=== PATIENT | male | born 1945 | race Caucasian/White ===

== ENCOUNTER 2018-01-11 15:16 | Emergency (ER) | payer MEDICARE, OTHER ==
[~2018-01-11] VITALS: Ht 180.3 cm; Wt 75.0 kg
[~2018-01-11 15:16] MED LIST: BETA15CR15 SUBCUT; CLIN300C53 PO
[2018-01-11 15:35] VITALS: BP 120/81
[2018-01-11] MEDS ORDERED: TETanus/Pertussis (Acell)/Diphther VAC/PF (Tdap-Adult) 0.5ml syringe IM ONE (15:45)
[2018-01-11] MEDS ORDERED: mupirocin 2% ointment 22GM TP ONE (15:45)
[2018-01-11] MEDS ORDERED: cephalexin 250mg capsule PO ONE (15:50)
[2018-01-11] MEDS ORDERED: sulfamethoxazole/trimethoprim DS (800/160mg) tablet PO ONE (15:50)
[2018-01-11] MEDS ORDERED: SULF1TAB49 PO (15:54)
[2018-01-11] MEDS ORDERED: CEPH-572 PO (15:54)
== END 2018-01-11 16:23 | disposition home or self-care (01) ==
LOC: ER 15:16
DX: L03.115 Cellulitis of right lower limb (principal); Z59.0 Homelessness; Z60.2 Problems related to living alone; Z79.899 Other long term (current) drug therapy
CPT/HCPCS: 87070; 87077; 87186; 90471; 90715; 99284; A6446; A6449

== ENCOUNTER 2018-03-16 12:25 | Emergency (ER) | payer MEDICARE, OTHER ==
[~2018-03-16 12:25] MED LIST changes: -CLIN300C53 PO
[2018-03-16 12:45] VITALS: BP 129/86
[2018-03-16] MEDS ORDERED: TETanus/Pertussis (Acell)/Diphther VAC/PF (Tdap-Adult) 0.5ml syringe IMVAC ONE (12:55)
[2018-03-16] MEDS ORDERED: CEPH500C5 PO (13:23)
[2018-03-16] MEDS ORDERED: mupirocin 2% ointment 22GM TP STA (13:23)
== END 2018-03-16 14:25 | disposition home or self-care (01) ==
LOC: ER 12:26
DX: S81.801A Unspecified open wound, right lower leg, initial encounter (principal); L03.115 Cellulitis of right lower limb; Z60.2 Problems related to living alone; Z59.0 Homelessness; Z79.899 Other long term (current) drug therapy; X58.XXXA Exposure to other specified factors, initial encounter; Y93.89 Activity, other specified; Y92.89 Other specified places as the place of occurrence of the external cause; Y99.8 Other external cause status
CPT/HCPCS: 87070; 87077; 87186; 90471; 90715; 99284; A6446; 99283

== ENCOUNTER 2018-03-19 08:47 | Emergency (ER) | payer MEDICARE, OTHER ==
[~2018-03-19] VITALS: Ht 177.8 cm; Wt 60.3 kg
[~2018-03-19 08:47] MED LIST changes: +CEPH500C5 PO
[2018-03-19 08:54] VITALS: BP 133/85
[2018-03-19] MEDS ORDERED: DOXY100C43 PO (09:21)
== END 2018-03-19 09:52 | disposition home or self-care (01) ==
LOC: ER 08:48
DX: L03.115 Cellulitis of right lower limb (principal); Z60.2 Problems related to living alone; Z59.0 Homelessness
CPT/HCPCS: 99283; A6222; A6255

== ENCOUNTER 2018-04-08 14:17 | Emergency (ER) | payer MEDICARE, OTHER ==
[~2018-04-08] VITALS: Ht 177.8 cm; Wt 76.5 kg
[~2018-04-08 14:17] MED LIST changes: +CEPH500C2 PO; +MUPI22OI30 TOP
[2018-04-08 15:36] VITALS: BP 125/65
== END 2018-04-08 15:39 | disposition home or self-care (01) ==
LOC: ER 14:18
DX: L85.8 Other specified epidermal thickening (principal); Z60.2 Problems related to living alone; Z59.0 Homelessness; Z56.0 Unemployment, unspecified; Z79.899 Other long term (current) drug therapy
CPT/HCPCS: 99281

== ENCOUNTER 2018-04-09 18:43 | Emergency (ER) | payer MEDICARE, OTHER ==
[~2018-04-09] VITALS: Ht 177.8 cm; Wt 82.5 kg
[2018-04-09 18:55] VITALS: BP 129/82
== END 2018-04-09 20:31 | disposition home or self-care (01) ==
LOC: ER 18:44
DX: L98.9 Disorder of the skin and subcutaneous tissue, unspecified (principal); Z60.2 Problems related to living alone; Z59.0 Homelessness; Z56.0 Unemployment, unspecified; Z79.899 Other long term (current) drug therapy
CPT/HCPCS: 99281

== ENCOUNTER 2018-04-14 12:09 | Emergency (ER) | payer MEDICARE, OTHER ==
[~2018-04-14] VITALS: Ht 180.3 cm; Wt 77.5 kg
[~2018-04-14 12:09] MED LIST changes: -MUPI22OI30 TOP
[2018-04-14 12:31] VITALS: BP 153/95
== END 2018-04-14 12:56 | disposition home or self-care (01) ==
LOC: ER 12:10
DX: L85.8 Other specified epidermal thickening (principal); Z60.2 Problems related to living alone; Z59.0 Homelessness; Z56.0 Unemployment, unspecified; Z79.899 Other long term (current) drug therapy
CPT/HCPCS: 99281

== ENCOUNTER 2018-04-19 11:15 | Emergency (ER) | payer MEDICARE, OTHER ==
[~2018-04-19] VITALS: Ht 177.8 cm; Wt 77.0 kg
[2018-04-19 12:23] VITALS: BP 143/76
== END 2018-04-19 12:30 | disposition home or self-care (01) ==
LOC: ER 11:16
DX: M25.572 Pain in left ankle and joints of left foot (principal); R22.42 Localized swelling, mass and lump, left lower limb; Z60.2 Problems related to living alone; Z56.0 Unemployment, unspecified; Z59.0 Homelessness; Z79.899 Other long term (current) drug therapy
CPT/HCPCS: 99281

== ENCOUNTER 2018-09-13 15:42 | Emergency (ER) | payer MEDICARE, OTHER ==
[~2018-09-13] VITALS: Ht 177.8 cm; Wt 77.0 kg
[~2018-09-13 15:42] MED LIST changes: -CEPH500C2 PO
[2018-09-13 15:55] VITALS: BP 143/99
[2018-09-13] MEDS ORDERED: IBUP-1984 PO (16:10)
[2018-09-13] MEDS ORDERED: ACET-2119 PO (16:10)
[2018-09-13] MEDS ORDERED: CEPH500C2 PO (16:10)
[2018-09-13] MEDS ORDERED: cephalexin 500mg capsule PO ONE (16:15)
== END 2018-09-13 16:31 | disposition home or self-care (01) ==
LOC: ER 15:42
DX: L03.115 Cellulitis of right lower limb (principal); Z56.0 Unemployment, unspecified; Z59.0 Homelessness
CPT/HCPCS: 99283

== ENCOUNTER 2018-09-23 11:05 | Emergency (ER) | payer MEDICARE, OTHER ==
[~2018-09-23] VITALS: Ht 177.8 cm; Wt 80.2 kg
[~2018-09-23 11:05] MED LIST changes: +ACET-2119 PO; +CEPH500C2 PO; +IBUP-1984 PO
[2018-09-23 11:39] VITALS: BP 159/50
[2018-09-23] MEDS ORDERED: bacitracin 15gm ointment TP ONE (11:55)
[2018-09-23] MEDS ORDERED: BACI28OI9 TP (11:56)
== END 2018-09-23 13:13 | disposition home or self-care (01) ==
LOC: ER 11:05
DX: S71.102A Unspecified open wound, left thigh, initial encounter (principal); S91.001A Unspecified open wound, right ankle, initial encounter; Z59.0 Homelessness; Z56.0 Unemployment, unspecified; X58.XXXA Exposure to other specified factors, initial encounter; Y93.89 Activity, other specified; Y92.89 Other specified places as the place of occurrence of the external cause; Y99.8 Other external cause status
CPT/HCPCS: 99283

== ENCOUNTER 2018-12-18 12:36 | Emergency (ER) | payer MEDICARE, OTHER ==
[~2018-12-18] VITALS: Ht 180.3 cm; Wt 72.0 kg
[~2018-12-18 12:36] MED LIST changes: -ACET-2119 PO; +BACI28OI9 TP; -BETA15CR15 SUBCUT; -CEPH500C2 PO; -CEPH500C5 PO; -IBUP-1984 PO
[2018-12-18] MEDS ORDERED: CEPH-572 PO (15:21)
[2018-12-18] MEDS ORDERED: SULF1TAB49 PO (15:21)
[2018-12-18 16:12] VITALS: BP 140/60
== END 2018-12-18 16:16 | disposition home or self-care (01) ==
LOC: ER 12:39
DX: L03.115 Cellulitis of right lower limb (principal); Z60.2 Problems related to living alone; Z59.0 Homelessness; Z56.0 Unemployment, unspecified; Z79.1 Long term (current) use of non-steroidal anti-inflammatories (NSAID)
CPT/HCPCS: 99283

== ENCOUNTER 2018-12-21 14:19 | Emergency (ER) | payer MEDICARE, OTHER ==
[~2018-12-21] VITALS: Ht 177.8 cm; Wt 77.8 kg
[~2018-12-21 14:19] MED LIST changes: +CEPH-572 PO; +SULF1TAB49 PO
[2018-12-21 14:32] VITALS: BP 143/98
== END 2018-12-21 16:33 | disposition left against medical advice (07) ==
LOC: ER 14:19
DX: M79.671 Pain in right foot (principal); Z53.21 Procedure and treatment not carried out due to patient leaving prior to being seen by health care provider

== ENCOUNTER 2019-08-21 19:10 | Emergency (ER) | payer MEDICARE ==
[~2019-08-21 19:10] MED LIST changes: -CEPH-572 PO; -SULF1TAB49 PO
== END 2019-08-21 21:18 | disposition left against medical advice (07) ==
LOC: ER 19:12
DX: R11.10 Vomiting, unspecified (principal); R42 Dizziness and giddiness; Z53.21 Procedure and treatment not carried out due to patient leaving prior to being seen by health care provider
CPT/HCPCS: 93005

== ENCOUNTER 2019-11-23 11:15 | Emergency (ER) | payer MEDICARE, OTHER ==
[~2019-11-23] VITALS: Ht 180.3 cm; Wt 77.3 kg
[2019-11-23] MEDS ORDERED: PERM60CR19 TP (12:34)
[2019-11-23] MEDS ORDERED: IVER3TAB2 PO (12:34)
== END 2019-11-23 12:44 | disposition home or self-care (01) ==
LOC: ER 11:16
DX: R21 Rash and other nonspecific skin eruption (principal); Z60.2 Problems related to living alone; Z59.0 Homelessness; Z56.0 Unemployment, unspecified; Z79.899 Other long term (current) drug therapy
CPT/HCPCS: 99283

== ENCOUNTER 2019-12-03 20:59 | Emergency (ER) | payer MEDICARE ==
[~2019-12-03] VITALS: Ht 182.9 cm; Wt 72.7 kg
[~2019-12-03 20:59] MED LIST changes: +IVER3TAB2 PO; +PERM60CR19 TP
[2019-12-03 21:05] VITALS: BP 154/91
[2019-12-03] MEDS ORDERED: diphenhydrAMINE 25mg capsule PO ONE (22:00)
[2019-12-03] MEDS ORDERED: DIPH-423 PO (22:01)
== END 2019-12-03 22:26 | disposition home or self-care (01) ==
LOC: ER 20:59
DX: L29.9 Pruritus, unspecified (principal); Z60.2 Problems related to living alone; Z59.0 Homelessness; Z56.0 Unemployment, unspecified; Z79.899 Other long term (current) drug therapy
CPT/HCPCS: 99283; Q0163

== ENCOUNTER 2019-12-27 04:51 | Emergency (ER) | payer MEDICARE ==
[~2019-12-27] VITALS: Ht 180.3 cm; Wt 68.1 kg
[~2019-12-27 04:51] MED LIST changes: +DIPH-423 PO; -PERM60CR19 TP
[2019-12-27 04:54] VITALS: BP 126/74
--- NOTE | 2019-12-27 05:27 | NUR ---
Patient is sitting up and appears more alert when temp was re-checked. still 103 temporal. parents state that he seems like his symptoms have reduced a little.
[2019-12-27] MEDS ORDERED: CEPH500C5 PO (05:56)
--- NOTE | 2019-12-27 06:23 | NUR ---
REPORT FROM FRANCESCA LARIOS. PATIENT IS NOT IN ASSIGNED ROOM AND HAS ELOPED, PER ER FEEDER OPERATOR.
== END 2019-12-27 06:31 | disposition home or self-care (01) ==
LOC: ER 04:52
DX: L03.221 Cellulitis of neck (principal); L03.114 Cellulitis of left upper limb; L03.113 Cellulitis of right upper limb; Z60.2 Problems related to living alone; Z59.0 Homelessness; Z56.0 Unemployment, unspecified; Z79.899 Other long term (current) drug therapy
CPT/HCPCS: 99283

== ENCOUNTER 2020-01-22 12:43 | Emergency (ER) | payer MEDICARE ==
[~2020-01-22] VITALS: Ht 200.7 cm; Wt 65.9 kg
[~2020-01-22 12:43] MED LIST changes: +CEPH500C5 PO
[2020-01-22 13:06] VITALS: BP 160/114
== END 2020-01-22 14:40 | disposition left against medical advice (07) ==
LOC: ER 12:44
DX: R21 Rash and other nonspecific skin eruption (principal); Z59.0 Homelessness; Z56.0 Unemployment, unspecified; Z53.21 Procedure and treatment not carried out due to patient leaving prior to being seen by health care provider

== ENCOUNTER 2020-02-04 16:31 | Emergency (ER) | payer MEDICARE ==
--- NOTE | 2020-02-04 16:36 | NUR ---
Per registration staff, this patient signed in then sat down and then immediately left the lobby.
--- NOTE | 2020-02-04 16:57 | NUR ---
Not in lobby second call. Charge nurse aware.
--- NOTE | 2020-02-04 18:21 | NUR ---
THREE CALLS TO TRIAGE. NOT IN LOBBY
== END 2020-02-04 18:22 | disposition left against medical advice (07) ==
LOC: ER 16:31
DX: R41.0 Disorientation, unspecified (principal); Z53.21 Procedure and treatment not carried out due to patient leaving prior to being seen by health care provider

== ENCOUNTER 2020-02-06 17:52 | Emergency (ER) | payer MEDICARE ==
[~2020-02-06] VITALS: Ht 180.3 cm; Wt 74.3 kg
[2020-02-06 17:57] VITALS: BP 125/77
== END 2020-02-06 18:29 | disposition left against medical advice (07) ==
LOC: ER 17:53
DX: R41.0 Disorientation, unspecified (principal); Z59.0 Homelessness; Z56.0 Unemployment, unspecified
CPT/HCPCS: 99281

== ENCOUNTER 2020-02-09 17:46 | Emergency (ER) | payer MEDICARE ==
[~2020-02-09] VITALS: Ht 177.8 cm; Wt 75.0 kg
[2020-02-09 18:03] VITALS: BP 147/108
== END 2020-02-09 19:37 | disposition home or self-care (01) ==
LOC: ER 17:48
DX: L29.9 Pruritus, unspecified (principal); Z59.0 Homelessness; Z56.0 Unemployment, unspecified; Z60.2 Problems related to living alone
CPT/HCPCS: 99281

== ENCOUNTER 2020-03-19 17:50 | Emergency (ER) | payer MEDICARE, OTHER ==
[~2020-03-19] VITALS: Ht 180.3 cm; Wt 68.2 kg
[2020-03-19 17:51] VITALS: BP 149/80
--- NOTE | 2020-03-19 17:58 | NUR ---
PATIENT WALKED OUT OF TRIAGE AREA AND STATES HE "HAS TO GO SOMEWHERE". PATIENT STATES THAT HE NO LONGER NEEDS TO SEE A DOCTOR. LEFT WITHOUT BEING SEEN BY PROVIDER.
== END 2020-03-19 18:06 | disposition left against medical advice (07) ==
LOC: ER 17:50
DX: R06.02 Shortness of breath (principal); Z53.21 Procedure and treatment not carried out due to patient leaving prior to being seen by health care provider

== ENCOUNTER 2020-11-07 16:27 | Emergency (ER) | payer MEDICARE | END 2020-11-07 16:46 | disposition left against medical advice (07) | LOC: ER 16:27 | DX: Z20.828 Contact with and (suspected) exposure to other viral communicable diseases (principal); Z53.21 Procedure and treatment not carried out due to patient leaving prior to being seen by health care provider ==

== ENCOUNTER 2020-12-13 17:04 | Emergency (ER) | payer MEDICARE ==
[~2020-12-13] VITALS: Ht 180.3 cm; Wt 75.8 kg
--- NOTE | 2020-12-13 17:57 | NUR ---
pt brought back to ed room 3 and was cleaned up and his cothing was changed, there was stool and urine on his clothes. when asked if he was incontinent he said no. he knows his name and but not why he came into the er today.
--- NOTE | 2020-12-13 19:09 | NUR ---
[facility] states that pt normally is confused, and [facility].
[2020-12-13] MEDS ORDERED: normal saline 1000ML IV soln IVB ONE (19:10)
--- NOTE | 2020-12-13 19:36 | NUR ---
pt given sandwich and juice
[2020-12-13 19:37] LABS: BASOPHILS # (AUTO) 0.1 X10'3 (0-0.2); BASOPHILS % (AUTO) 0.9 % (0-1); EOSINOPHILS # (AUTO) 0.2 X10'3 (0-0.9); EOSINOPHILS % (AUTO) 4.1 % (0-6); HEMATOCRIT 42.9 % (42.0-52.0); HEMOGLOBIN 14.2 g/dl (14.0-17.9); LYMPHOCYTES # (AUTO) 1.5 X10'3 (1.1-4.8); MEAN CORPUSCULAR HEMOGLOBIN 29.6 PG (27.0-31.0); MEAN CORPUSCULAR HGB CONC 33.1 g/dL (33.0-36.5); MEAN CORPUSCULAR VOLUME 89.4 FL (78-98); MEAN PLATELET VOLUME 8.8 FL (7.4-10.4); MONOCYTES # (AUTO) 0.4 X10'3 (0-0.9); MONOCYTES % (AUTO) 7.3 % (2-12); NEUTROPHILS # (AUTO) 3.4 X10'3 (1.8-7.7); NEUTROPHILS % (AUTO) 60.7 % (42-75); PLATELET COUNT 194 X10'3 (140-440); RED BLOOD COUNT 4.79 X10'6 (4.70-6.10); RED CELL DISTRIBUTION WIDTH 13.7 % (11.5-14.5); WHITE BLOOD COUNT 5.6 X10'3 (4.5-11.0)
[2020-12-13 19:47] LABS: ALANINE AMINOTRANSFERASE 28 U/L (12-78); ALBUMIN 3.8 G/DL (3.4-5.0); ALKALINE PHOSPHATASE 110 IU/L (46-116); ANION GAP 7 (8-16); ASPARTATE AMINO TRANSFERASE 16 U/L (10-37); BILIRUBIN,TOTAL 0.3 MG/DL (0.1-1.0); BLOOD UREA NITROGEN 21 MG/DL (7-18); BUN/CREATININE RATIO 23.3 (5.4-32.0); CALCIUM 8.7 MG/DL (8.5-10.1); CHLORIDE 103 MMOL/L (99-107); ETHANOL < 0.010 GM/DL (0.0-0.010); GLUCOSE 102 MG/DL (70-104); SODIUM 139 MMOL/L (135-145); TOTAL CARBON DIOXIDE 28.8 MMOL/L (24-32); TOTAL PROTEIN 7.6 G/DL (6.4-8.2); eGFR 82 ML/MIN
[2020-12-13] MEDS ORDERED: NO HOME MEDS (20:12)
[2020-12-13 20:22] LABS: CLARITY,URINE CLEAR (Clear); COLOR,URINE YELLOW (Yellow); GLUCOSE, URINE NEGATIVE (Neg); KETONES,URINE NEGATIVE (Neg); LEUKOCYTE ESTERASE ,URINE NEGATIVE (Neg); NITRITES, URINE NEGATIVE (Neg); OCCULT BLOOD,URINE NEGATIVE (Neg); PH,URINE 5.5 (4.8-8.0); PROTEIN,URINE NEGATIVE (Neg); UROBILINOGEN,URINE 0.2 E.U/dL (0.2-1.0)
[2020-12-13 20:31] LABS: UA COLLECTION TYPE VOIDED
[2020-12-13 20:47] LABS: URINE AMPHETAMINE SCREEN NEGATIVE (Neg); URINE BARBITUATE SCREEN NEGATIVE (Neg); URINE BENZODIAZEPINES SCREEN NEGATIVE (Neg); URINE CANNABINOID SCREEN NEGATIVE (Neg); URINE COCAINE SCREEN NEGATIVE (Neg); URINE METHADONE SCREEN NEGATIVE (Neg); URINE OPIATE SCREEN NEGATIVE (Neg); URINE PHENCYCLIDINE SCREEN NEGATIVE (Neg)
--- NOTE | 2020-12-13 21:56 | NUR ---
Pt remains confused oriented x 1. Pt placed on [id number] for gravely disabled.
--- NOTE | 2020-12-13 22:47 | NUR ---
PT RESTING IN BED, RESTING QUIETLY, NO S/S OF DISTRESS.
--- NOTE | 2020-12-13 23:22 | NUR ---
Pt incontinent of urine. Pt cleaned up, clothing changed.
--- NOTE | 2020-12-13 23:46 | NUR ---
PT RESTING IN BED, RESTING QUIETLY, NO S/S OF DISTRESS.
--- NOTE | 2020-12-14 01:48 | NUR ---
PT RESTING IN BED, RESTING QUIETLY, NO S/S OF DISTRESS.
--- NOTE | 2020-12-14 02:56 | NUR ---
PT RESTING IN BED, RESTING QUIETLY, NO S/S OF DISTRESS.
--- NOTE | 2020-12-14 04:37 | NUR ---
PT RESTING IN BED, RESTING QUIETLY, NO S/S OF DISTRESS.
--- NOTE | 2020-12-14 07:30 | NUR ---
PT SLEEPING WITH REGULAR RATE NOTED. WILL CONTINUE TO MONITOR.
--- NOTE | 2020-12-14 07:57 | NUR ---
PT MOVED FROM ED ROOM 12 TO ED OVERFLOW BED 21. PT CALM AND COOPERATIVE AT THIS TIME. WILL CONT TO MONITOR.
--- NOTE | 2020-12-14 08:52 | NUR ---
PT RESTING COMFORTABLY WITH NO SIGNS OF DISTRESS OR DISCOMFORT NOTED. WILL CONT TO MONITOR.
--- NOTE | 2020-12-14 09:51 | NUR ---
PT RESTING IN BED WITH NO SIGNS OF DISTRESS OR DISCOMFORT NOTED. PT HAS BEEN ABLE TO COMMUNICATE TO STAFF WHEN NEEDING TO USE THE RESTROOM. WILL CONT TO MONITOR.
[2020-12-14] MEDS ORDERED: LORazepam 1 MG tablet PO ONE (10:50)
--- NOTE | 2020-12-14 10:52 | NUR ---
PT GETTING MORE FIDGITY AND ANSY. CHILD BEDSIDE FOR ANOTHER PATIENT AND GAVE VERBAL FOR 1MG ATIVAN. WILL ORDER AND CONT TO MONITOR.
--- NOTE | 2020-12-14 11:53 | NUR ---
talking with dr. escobar about patient status. he is adding on risperidol 1mg daily. will monitor.
[2020-12-14] MEDS ORDERED: risperiDONE 0.5mg tablet PO ONE (12:00)
--- NOTE | 2020-12-14 13:04 | NUR ---
[facility] AT BEDSIDE DOING PT EVAL. PT AWAKE AND COOPERATIVE.
--- NOTE | 2020-12-14 13:24 | NUR ---
called [facility] pt ok to go back to [facility]
--- NOTE | 2020-12-14 13:29 | NUR ---
called [facility], they will pickle sorter patient in 35 minutes, let er admission know
--- NOTE | 2020-12-14 13:40 | NUR ---
patient incontinent of urine, cleaned up and provided clothes: sweatpants and t shirt, and long sleeve shirt provided. patient follows commands and is oriented to self and location
--- NOTE | 2020-12-14 13:46 | NUR ---
per tech patient ate 100% of both breakfast and lunch today
[2020-12-14 13:49] VITALS: BP 131/78
[2020-12-15] MEDS ORDERED: risperiDONE 2mg tablet PO ONE (08:00)
== END 2020-12-14 14:00 | disposition home or self-care (01) ==
LOC: ER 17:04
DX: F03.90 Unspecified dementia, unspecified severity, without behavioral disturbance, psychotic disturbance, mood disturbance, and anxiety (principal); R41.0 Disorientation, unspecified; Z60.2 Problems related to living alone; Z59.0 Homelessness; Z56.0 Unemployment, unspecified; R32 Unspecified urinary incontinence; R15.9 Full incontinence of feces; F10.10 Alcohol abuse, uncomplicated; F19.10 Other psychoactive substance abuse, uncomplicated
CPT/HCPCS: 36415; 70450; 71045; 80053; 80305; 80320; 81003; 82140; 82948; 85025; 93005; 99285; J7030

== ENCOUNTER 2021-01-11 20:49 | Emergency (ER) | payer MEDICARE ==
[~2021-01-11] VITALS: Ht 182.9 cm; Wt 78.0 kg
[~2021-01-11 20:49] MED LIST changes: -BACI28OI9 TP; -CEPH500C5 PO; -DIPH-423 PO; -IVER3TAB2 PO; +NO HOME MEDS
[2021-01-11 21:39] VITALS: BP 168/92
[2021-01-11 21:49] LABS: BASOPHILS # (AUTO) 0.1 X10'3 (0-0.2); BASOPHILS % (AUTO) 1.1 % (0-1); EOSINOPHILS # (AUTO) 0.4 X10'3 (0-0.9); EOSINOPHILS % (AUTO) 6.1 % (0-6); HEMATOCRIT 41.4 % (42.0-52.0); HEMOGLOBIN 13.9 g/dl (14.0-17.9); LYMPHOCYTES # (AUTO) 1.7 X10'3 (1.1-4.8); LYMPHOCYTES % (AUTO) 25.3 % (21-51); MEAN CORPUSCULAR HEMOGLOBIN 29.3 PG (27.0-31.0); MEAN CORPUSCULAR HGB CONC 33.6 g/dL (33.0-36.5); MEAN CORPUSCULAR VOLUME 87.3 FL (78-98); MONOCYTES # (AUTO) 0.6 X10'3 (0-0.9); MONOCYTES % (AUTO) 8.3 % (2-12); NEUTROPHILS % (AUTO) 59.2 % (42-75); PLATELET COUNT 211 X10'3 (140-440); RED BLOOD COUNT 4.74 X10'6 (4.70-6.10); RED CELL DISTRIBUTION WIDTH 13.8 % (11.5-14.5); WHITE BLOOD COUNT 6.8 X10'3 (4.5-11.0)
[2021-01-11 21:59] LABS: ALANINE AMINOTRANSFERASE 26 U/L (12-78); ALBUMIN 3.7 G/DL (3.4-5.0); ALKALINE PHOSPHATASE 114 IU/L (46-116); ANION GAP 9 (8-16); ASPARTATE AMINO TRANSFERASE 13 U/L (10-37); BILIRUBIN,TOTAL 0.2 MG/DL (0.1-1.0); BLOOD UREA NITROGEN 18 MG/DL (7-18); BUN/CREATININE RATIO 18.6 (5.4-32.0); CALCIUM 8.7 MG/DL (8.5-10.1); CHLORIDE 103 MMOL/L (99-107); CREATININE 0.97 MG/DL (0.60-1.10); GLUCOSE 107 MG/DL (70-104); POTASSIUM 3.7 MMOL/L (3.5-5.1); SODIUM 140 MMOL/L (135-145); TOTAL CARBON DIOXIDE 28.5 MMOL/L (24-32); TOTAL PROTEIN 7.5 G/DL (6.4-8.2); eGFR 75 ML/MIN
[2021-01-11 22:13] LABS: ETHANOL < 0.010 GM/DL (0.0-0.010)
[2021-01-11 22:34] LABS: CLARITY,URINE CLEAR (Clear); COLOR,URINE YELLOW (Yellow); GLUCOSE, URINE NEGATIVE (Neg); KETONES,URINE NEGATIVE (Neg); LEUKOCYTE ESTERASE ,URINE NEGATIVE (Neg); NITRITES, URINE NEGATIVE (Neg); OCCULT BLOOD,URINE NEGATIVE (Neg); PH,URINE 6.5 (4.8-8.0); PROTEIN,URINE NEGATIVE (Neg); UROBILINOGEN,URINE 0.2 E.U/dL (0.2-1.0)
[2021-01-11 22:41] LABS: UA COLLECTION TYPE VOIDED
[2021-01-11 22:50] LABS: URINE AMPHETAMINE SCREEN NEGATIVE (Neg); URINE BARBITUATE SCREEN NEGATIVE (Neg); URINE BENZODIAZEPINES SCREEN NEGATIVE (Neg); URINE CANNABINOID SCREEN NEGATIVE (Neg); URINE COCAINE SCREEN NEGATIVE (Neg); URINE METHADONE SCREEN NEGATIVE (Neg); URINE OPIATE SCREEN NEGATIVE (Neg); URINE PHENCYCLIDINE SCREEN NEGATIVE (Neg)
--- NOTE | 2021-01-11 23:09 | NUR ---
CALLED [facility] [phone] ETA FOR PRECISION INSTRUMENT MAKER AND REPAIRER IS 30-45 MINS
== END 2021-01-12 00:02 | disposition home or self-care (01) ==
LOC: ER 20:50
DX: F03.90 Unspecified dementia, unspecified severity, without behavioral disturbance, psychotic disturbance, mood disturbance, and anxiety (principal); Z20.822 Contact with and (suspected) exposure to COVID-19; R41.0 Disorientation, unspecified; Z60.2 Problems related to living alone; Z59.0 Homelessness; Z56.0 Unemployment, unspecified
CPT/HCPCS: 36415; 80053; 80305; 80320; 81003; 82948; 84443; 85025; 87426; 93005; 99284

== ENCOUNTER 2021-01-31 19:59 | Emergency (ER) | payer MEDICARE ==
[~2021-01-31] VITALS: Ht 180.3 cm; Wt 77.3 kg
[2021-01-31 20:21] VITALS: BP 166/94
--- NOTE | 2021-01-31 21:01 | NUR ---
PER ER SCREENER PT WALKED OUT OF LOBBY. SHE ATTEMPTED TO GET PT TO RETURN BUT HE DECLINED AND WALKED OFF.
--- NOTE | 2021-01-31 21:26 | NUR ---
PATIENT WANDERING HALLS OF ER HAS BEEN REDIRECTED TO ROOM 3 TIMES. GAVE A SANDWICH PATIENT URINATED ON HIMSELF AND REFUSED TO CHANGE HIS PANTS WHEN OFFERED DRY SWEATS. HE SAID HE WAS LEAVING i ASKED HIM WHERE HE IS HE REFUSED TO ANSWER QUESTIONS. DR PIERRE NOTIFIED.
--- NOTE | 2021-01-31 21:27 | NUR ---
PT RETURNED TO ER TO BE SEEN
== END 2021-01-31 21:40 | disposition left against medical advice (07) ==
LOC: ER 20:01
DX: R32 Unspecified urinary incontinence (principal); Z53.21 Procedure and treatment not carried out due to patient leaving prior to being seen by health care provider

== ENCOUNTER 2022-06-13 16:17 | Emergency (ER) | payer MEDICARE ==
[~2022-06-13] VITALS: Ht 177.8 cm; Wt 77.3 kg
[2022-06-13] MEDS ORDERED: acetaminophen 325mg tablet PO ONE (17:15)
[2022-06-13 17:57] LABS: BASOPHILS # (AUTO) 0.1 X10'3 (0-0.2); BASOPHILS % (AUTO) 0.7 % (0-1); EOSINOPHILS % (AUTO) 0.2 % (0-6); HEMATOCRIT 38.9 % (42.0-52.0); HEMOGLOBIN 13.1 g/dl (14.0-17.9); LYMPHOCYTES # (AUTO) 1.1 X10'3 (1.1-4.8); LYMPHOCYTES % (AUTO) 5.8 % (21-51); MEAN CORPUSCULAR HEMOGLOBIN 28.9 PG (27.0-31.0); MEAN CORPUSCULAR HGB CONC 33.6 g/dL (33.0-36.5); MEAN PLATELET VOLUME 8.8 FL (7.4-10.4); MONOCYTES # (AUTO) 1.5 X10'3 (0-0.9); MONOCYTES % (AUTO) 8.2 % (2-12); NEUTROPHILS % (AUTO) 85.1 % (42-75); PLATELET COUNT 203 X10'3 (140-440); RED BLOOD COUNT 4.52 X10'6 (4.70-6.10); RED CELL DISTRIBUTION WIDTH 14.3 % (11.5-14.5); WHITE BLOOD COUNT 18.8 X10'3 (4.5-11.0)
[2022-06-13 18:10] LABS: ALANINE AMINOTRANSFERASE 21 U/L (12-78); ALBUMIN 3.4 G/DL (3.4-5.0); ALBUMIN/GLOBULIN RATIO 0.8 (1.1-1.5); ALKALINE PHOSPHATASE 90 IU/L (46-116); ANION GAP 6 (8-16); ASPARTATE AMINO TRANSFERASE 17 U/L (10-37); BILIRUBIN,TOTAL 0.6 MG/DL (0.1-1.0); BLOOD UREA NITROGEN 24 MG/DL (7-18); CALCIUM 8.8 MG/DL (8.5-10.1); CHLORIDE 104 MMOL/L (99-107); GLUCOSE 145 MG/DL (70-104); POTASSIUM 4.3 MMOL/L (3.5-5.1); SODIUM 138 MMOL/L (135-145); TOTAL CARBON DIOXIDE 27.7 MMOL/L (24-32); TOTAL PROTEIN 7.7 G/DL (6.4-8.2); eGFR 59 ML/MIN
[2022-06-13 18:13] LABS: MAGNESIUM 1.9 MG/DL (1.5-2.4)
[2022-06-13 21:11] LABS: CLARITY,URINE CLOUDY (Clear); COLOR,URINE YELLOW (Yellow); GLUCOSE, URINE NEGATIVE (Neg); KETONES,URINE NEGATIVE (Neg); LEUKOCYTE ESTERASE ,URINE SMALL (Neg); OCCULT BLOOD,URINE LARGE (Neg); PH,URINE 5.5 (4.8-8.0); PROTEIN,URINE 30 mg/dl (Neg); UROBILINOGEN,URINE 0.2 E.U/dL (0.2-1.0)
[2022-06-13 21:20] LABS: NITRITES, URINE NEGATIVE (Neg); UA COLLECTION TYPE STRAIGHT CATH
[2022-06-13 21:21] LABS: BACTERIA,URINE FEW /HPF (Neg); RBC,URINE 50-100 /HPF (0-2); SQUAMOUS EPITHELIAL CELL,UR FEW /LPF (FEW)
[2022-06-13] MEDS ORDERED: sulfamethoxazole/trimethoprim DS (800/160mg) tablet PO ONE (21:35)
[2022-06-13] MEDS ORDERED: SULF1TAB49 PO (23:47)
[2022-06-14 00:52] VITALS: BP 130/71
== END 2022-06-14 01:31 | disposition home or self-care (01) ==
LOC: ER 16:18
DX: N30.00 Acute cystitis without hematuria (principal); F03.90 Unspecified dementia, unspecified severity, without behavioral disturbance, psychotic disturbance, mood disturbance, and anxiety
CPT/HCPCS: 36415; 71045; 80053; 81001; 83605; 83735; 84145; 84484; 85025; 87077; 87088; 87186; 93005; 99285; C1758